=== PATIENT | male | born 1950 | race Hispanic/Latino ===

== ENCOUNTER 2017-11-05 09:35 | Outpatient (CLI) | payer MEDICARE ==
--- NOTE | 2017-11-05 11:27 | ULT ---
RENAL ULTRASOUND: HISTORY: Transplant. COMPARISON: None. FINDINGS: The right kidney measures 9.5 x 5.9 x 6.1 cm without mass, hydronephrosis, or abnormal calcifications . 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 No mass, hydronephrosi s or abnormal calcifications. The resistive indices are normal. Prevoid urinary bladder volume is 6 8 mL. IMPRESSION: Normal exam of the left kidney and right pelvic kidney. POS: [facility]
== END 2017-11-05 09:36 | disposition home or self-care (01) ==
LOC: ULT 09:35
PROVIDERS: ATTEND Internal Medicine Nephrology
DX: Z48.22 Encounter for aftercare following kidney transplant (principal); Z94.0 Kidney transplant status
CPT/HCPCS: 76770; 76775; 80053; 81001

== ENCOUNTER 2018-06-02 12:40 | Outpatient (CLI) | payer MEDICARE | END 2018-06-02 12:41 | disposition home or self-care (01) | LOC: BICULT 12:40 | PROVIDERS: ATTEND Internal Medicine Nephrology | DX: Z48.22 Encounter for aftercare following kidney transplant (principal) | CPT/HCPCS: 76775 ==